=== PATIENT | female | born 1975 ===

== ENCOUNTER 2019-05-17 12:29 | Day surgery (SDC) | payer OTHER, SELFPAY ==
[2019-05-16 16:55] VITALS: BMI 26.5
[2019-05-17] VITALS (13 sets, daily range): BP systolic 104–133; BP diastolic 70–86; PULSE 66–110; RESP 15–27; TEMP 36.1–37.2; O2SAT 95–99
--- NOTE | 2019-05-17 13:04 | ANES.PREANE2 ---
Pre-Anesthetic Assessment Pre-Anesthetic Assessment: Height/Weight: Height 1.57 m Weight 65.771 kg Temp Pulse Resp BP Pulse Ox 97.4 F L 66 18 128/86 99 05/17/19 12:50 05/17/19 12:50 05/17/19 12:50 05/17/19 12:50 05/17/19 12:50 Preop Diagnosis: painful hardware Proposed Procedure: Operation Date: 05/17/19 14:15 Proposed Procedures p Hardware Removal Distal Radius and Ulna 19466 T84.84XA(Right) - Aaron Chavarria MD Familial anesthetic complications: NO trouble Was Beta Roberto taken within 24 hours: N/A Last intake: SOlids > 8 hrs Drank 1/2 cup of water at 1200 Social: Social History: No alcohol and No tobacco Comment: former smoker Exam: Pre-Anes Outpt Exam: alert, oriented x 3, clear to auscultation bilaterally and regular rate & rhythm Airway: Cervical ROM: WNL MP: 3 Dentition: Chipped Pulmonary: Pulmonary: None reported CV/HEM: CV/HEM: None reported : : None reported Comments: kidney stones Hepatic: Hepatic: None reported GI: GI: GERD Comments: H pylori - burping up sulfur-smelling stuff this morning (normal for her) was perscribed triple therapy but hasn't started it Metabolic: Metabolic: None reported Musc/skel: Musc/skel: Lower Back Pain Neuropsych: Neuropsych: None reported Anesthetic Plan: ASA status: 2 Anesthesia: General and Regional (specify below) Risk of > 500 ml blood loss (7ml/kg in children): No PFSH Anesthesia PFSH: Social History Smoking and tobacco status: never smoked Alcohol intake: never Data Anesthesia Cardiac Studies: No Data to Display
--- NOTE | 2019-05-17 14:21 | W.PM.OPSUD ---
Surgery/Procedure H&P Update DATE OF PROCEDURE: May 17, 2019 DATE H&P PERFORMED: 05/08/19 H&P UPDATE INFORMATION: I have reviewed H&P completed within last 30 days and No changes to prior documentation PREOP DIAGNOSIS: painful hardward right wrist PRIMARY INDICATION FOR PROCEDURE: Painful hardware right wrist PLANNED PROCEDURE: Operation Date: 05/17/19 14:15 Proposed Procedures p Hardware Removal Distal Radius and Ulna 29487 T84.84XA(Right) - Aaron Chavarria MD
--- NOTE | 2019-05-17 15:52 | PM.OP ---
Operative Report Date of procedure: May 17, 2019 Pre-op Diagnosis: painful hardward right wrist Pre-op Diagnosis: Painful hardware right distal radius and ulnar shaft Post-op diagnosis: same Post-op Findings: Same Procedure Done: Removal deep hardware right distal radius and ulna Pathology: none sent Anesthesia: General Estimated blood loss (mL): 20 Tourniquet time (min): 47 Complications: None Findings: The patient had healing of her distal radius and distal ulnar shaft fractures. She had abundant heterotopic bone volarly over the distal radial plate. There is no purulence or other evidence of infection Condition: stable Disposition: PACU Procedure: The patient was taken to the operating room and given a general anesthesia. She is given 2 g of Ancef. A timeout was performed. She was prepped and draped in the supine position with the right forearm exposed. Initially incision was made down the ulnar scar and dissection carried down through the ulnar plate. Utilizing a [place] soft tissue was removed over the plate dorsally and volarly. 5 screws were removed from the plate and the plate elevated. A single interfragmentary volar screw was removed as well. Prominent spicules of bone were debrided back with a rondure. Next the a volar incision was opened with a scalpel blade. The flexor carpi radialis tendon was identified and mobilized in its sheath. The volar sheath was divided and dissection carried down to the distal radius. Plate was visualized distally however is covered with bone more proximally. Utilizing a scalpel and freer the distal plate was freed of scar tissue and 5 distal screws to the plate were removed. An osteotome was used to remove bone overlying the proximal extent to the plate and 4 screws were removed there. The plate was elevated and I removed. Spicules of bone were again debrided back with a rondure. Deep tissues were closed with 4-0 Vicryl over both incisions the skin closed with skin jovan. The skin edges were infiltrated with half percent Marcaine solution. Sterile dressings were applied. The patient was placed in a forearm splint, extubated, and taken to recovery in stable condition.
[2019-05-17] MEDS: ondansetron 2 mg/ML SDV 2 mL 4 MG IVP ×2 (15:58→16:19)
[2019-05-17] MEDS: fentaNYL 50 mcg/mL INJ 2mL IVP ×2 (16:01→16:06)
--- NOTE | 2019-05-17 16:09 | SUR.PHASEI ---
1609 PT HAS SENSATION/MOVEMENT TO R. FINGERS, CAP REFILL <3 SEC
== END 2019-05-17 17:31 | disposition home or self-care (01) ==
PROVIDERS: PCP Nurse Practitioner Family; Visit Provider Orthopaedic Surgery
PROC: (CPT 20680; principal; 2019-05-17 14:15)
DX: T84.84XA Pain due to internal orthopedic prosthetic devices, implants and grafts, initial encounter (principal)
CPT/HCPCS: 20680; 12345; 81025; 96365; J0690; J1100; J1580; J1885; J2001; J2405; J2704; J3010; J3490

== ENCOUNTER 2024-03-21 18:41 | Emergency (ER) | payer OTHER, SELFPAY ==
[2024-03-21 18:42] VITALS: BP 175/96; PULSE 83; RESP 16; TEMP 36.7; O2SAT 99; BMI 24.1
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
[2024-03-21 18:51] VITALS: BP 175/96; PULSE 83; RESP 16; O2SAT 95
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
[2024-03-21 19:37] LABS: Basophils % 0.4 %; Eosinophils # 0.1 10^3/uL (0.0-0.8); Eosinophils % 1.7 %; Hematocrit 30.8 % (36-47); Lymphocytes # 2.9 10^3/uL (0.8-4.8); Lymphocytes % 37.6 %; Mean Corpuscular HGB Conc 30.5 g/dL (30-55); Mean Corpuscular Hemoglobin 23.6 pg (27-33); Mean Corpuscular Volume 77.4 fl (85-98); Mean Platelet Volume 9.4 fL (7.4-10.4); Monocytes # 0.7 10^3/uL (0.2-0.9); Monocytes % 8.7 %; Neutrophils # 3.89 10^3/uL (1.8-7.7); Neutrophils % 51.5 %; Nucleated Red Blood Cells % 0 %; Platelet Count 414 10^3/cmm (157-399); Red Blood Count 3.98 10^6/uL (3.85-5.65); Red Cell Distribution Width 16.5 % (12.1-15.1); White Blood Count 7.57 10^3/uL (3.29-11.43)
[2024-03-21 20:00] LABS: Alanine Aminotransferase 16 U/L (0-33); Albumin Level 4.4 g/dL (3.5-5.2); Alkaline Phosphatase 78 U/L (35-105); Anion Gap 17.1 (5-19); Aspartate Amino Transferase 23 U/L (0-32); Blood Urea Nitrogen 12 mg/dL (6-20); Calcium 9.4 mg/dL (8.5-10.5); Carbon Dioxide 22 mmol/L (22-29); Chloride 102 mmol/L (98-107); Creatinine Clr Calc Pharmacy 119.8713; Globulin 3.2 g/dL (1.3-4.6); Glomerular Filtration Rate 132.8 mL/min (90-130); Glucose 104 mg/dL (65-115); Osmolality Calculated 286 mOsm/kg (285-295); Potassium 3.1 mmol/L (3.5-5.1); Sodium 138 mmol/L (136-145); Total Bilirubin 0.2 mg/dL (0.15-1.2); Total Protein 7.6 g/dL (6.6-8.7)
[2024-03-21 20:01] LABS: Alcohol Level < 10 mg/dL (0-10)
[2024-03-21] MEDS: iohexol 350 mg/mL 500 mL Btl (per mL) IV (20:05)
[2024-03-21 20:34] LABS: Bilirubin Urine Negative (Negative); Blood Urine 1+ (Negative); Glucose Urine UA Negative (Normal); Ketones Urine Negative (Negative); Leukocyte Esterase Urine Negative (Negative); Nitrate Urine Negative (Negative); Protein Urine Negative (Negative); Specific Gravity, Urine 1.004 (1.005-1.030); Urine Appearance Clear (CLEAR); Urine Color Yellow (Yellow); Urobilinogen Urine 0.2 mg/dL (Negative); pH Urine 6.5 (5-7)
[2024-03-21 20:40] LABS: Add Urine Microscopic? YES; Bacteria Urine None Seen /hpf; Hyaline Casts Urine 0-4 /lpf; RBC Urine 0-2 /hpf (0-2); Squamous Epithelial Cell Urine 0-5 /hpf (0-5); WBC Urine 0-5 /hpf (0-5)
[2024-03-21 21:01] VITALS: BP 166/89; PULSE 83; RESP 16; O2SAT 99
== END 2024-03-21 21:03 | disposition home or self-care (01) ==
PROVIDERS: Emergency Provider Student in an Organized Health Care Education/Training Program; PCP Nurse Practitioner Family
DX: S13.4XXA Sprain of ligaments of cervical spine, initial encounter (principal); S39.012A Strain of muscle, fascia and tendon of lower back, initial encounter; V89.2XXA Person injured in unspecified motor-vehicle accident, traffic, initial encounter
CPT/HCPCS: 36415; 70450; 71260; 72125; 73590; 74177; 80053; 80307; 81001; 85025; 99285